=== PATIENT | female | born 1955 | race Caucasian/White ===

== ENCOUNTER 2017-06-12 12:00 | Observation (INO) | payer BC ==
[~2017-06-12] VITALS: Ht 172.7 cm; Wt 68.0 kg
--- NOTE | ~2017-06-12 | DS ---
PATIENT'S NAME: CARLITOS ROBERTSON [facility] AGE: 62 Y [address] ROOM: [place] [address] LOCATION: [facility] ADMIT DATE: 06/12/2017 Discharge Summary DISCHARGE DATE: 06/14/2017 FAMILY PHYSICIAN: Hussain Jarvis MD ATTENDING PHYSICIAN: Mango Ross PRIMARY DIAGNOSIS: Right tibia and fibular shaft fracture. SECONDARY DIAGNOSES: 1. Hyperlipidemia. 2. Gastroesophageal reflux disease. 3. Rheumatic fever as a child. 4. History of prolactinoma. PROCEDURE PERFORMED: Intramedullary rodding at right tibia. HISTORY: This is a 62-year-old female, presenting with a spiral fracture of the distal 1/3rd of her right tibia and an associated comminuted midshaft fibular fracture. Risks, benefits, limitations, and alternatives to intramedullary rodding were thoroughly reviewed with the patient and her . Please refer to her consultation notes as well as her admission history and physical. HOSPITAL COURSE: The patient underwent the above-specified procedure on 06/12/2017 without complications. Spinal anesthesia plus local anesthesia was utilized. She received 24 hours of perioperative prophylactic antibiotics. She remained hemodynamically stable and neurovascularly intact throughout her entire hospital course. Her postoperative deep venous thrombosis prophylaxis consisted of early mobilization and pneumatic compression devices. She received daily physical therapy for gait training and transfer training and progressed decently in physical therapy. On her date of discharge, 06/14/2017, the surgical incisions were healing well and showed no signs of infection. DISPOSITION: Home. DISCHARGE ACTIVITY: She is to be strict nonweightbearing of the right lower extremity. There is to be no dressing changes. She is to notify Dr. Ross immediately if she experiences increased pain, fevers, chills, erythema, or drainage. DISCHARGE MEDICATIONS: Percocet 5/325 mg 1 to 2 tablets p.o. every 4 hours p.r.n. for pain. She was then instructed to continue all her other preadmission medications as instructed by her Internal Medicine doctor. PATIENT'S NAME: CARLITOS ROBERTSON [facility] AGE: 62 Y [address] ROOM: [place] [address] LOCATION: [facility] ADMIT DATE: 06/12/2017 Discharge Summary DISCHARGE DATE: 06/14/2017 FAMILY PHYSICIAN: Hussain Jarvis MD ATTENDING PHYSICIAN: Mango Ross FOLLOWUP: Followup appointment is to be with Dr. Ross's office on 06/21/2017 for her initial postoperative evaluation. SHIMON GRADY PA-C FOR MANGO ROSS MD SMW/modl /[id number] d: 07/03/17 0139 t: 07/03/17 1006, DISCHARGE SUMMARY
--- NOTE | ~2017-06-12 | OR ---
PATIENT'S NAME: CARLITOS ROBERTSON [facility] AGE: 62 Y [address] ROOM: [place] [address] LOCATION: [facility] ADMIT DATE: 06/12/2017 OR/Procedure Report DISCHARGE DATE: FAMILY PHYSICIAN: Hussain Jarvis MD ATTENDING PHYSICIAN: MANGO ROSS SURGEON: Mango Ross MD MECHANICAL SERVICE SPECIALIST: None. DATE OF PROCEDURE: 06/12/2017 PREOPERATIVE DIAGNOSIS: Right tibia and fibula shaft fractures. POSTOPERATIVE DIAGNOSIS: Right tibia and fibula shaft fractures. PROCEDURE PERFORMED: Intramedullary rodding, right tibia. ANESTHESIA: Spinal anesthesia plus subcutaneous local anesthesia. DRAINS: None. SPECIMEN: None. COMPLICATIONS: None. ESTIMATED BLOOD LOSS: Approximately 100 mL. IMPLANTS: Synthes 11 mm x 345 mm titanium nail with 5 mm proximal end cap and 2 proximal and 2 distal interlocking screws. INDICATION FOR PROCEDURE: Ms. Robertson is a 62-year-old female presenting with a spiral fracture of the distal one-third of her right tibia and an associated comminuted midshaft fibular fracture. Risks, benefits, limitations, and alternatives to intramedullary rodding have been thoroughly reviewed with the patient and her . We have also discussed potential adverse sequelae of the injury itself. We have specifically reviewed risks and implications of infection, deep venous thrombosis, neurovascular complications, blood transfusion risks, malunion, nonunion, and potential need for further surgery. She has been told to anticipate some degree of postoperative numbness in the distribution of the infrapatellar branch of her saphenous nerve. Informed consent granted. DESCRIPTION OF PROCEDURE: The patient was positioned supine after administration of regional anesthesia. A well-padded pneumatic tourniquet was placed around the right proximal thigh, and the right lower extremity was placed into an arthroscopic leg jones. The left lower extremity was gently flexed at the hip, and the left foot was placed into a stirrup-type leg PATIENT'S NAME: CARLITOS ROBERTSON [facility] AGE: 62 Y [address] ROOM: [place] [address] LOCATION: [facility] ADMIT DATE: 06/12/2017 OR/Procedure Report DISCHARGE DATE: FAMILY PHYSICIAN: Hussain Jarvis MD ATTENDING PHYSICIAN: MANGO ROSS. The right lower extremity was prepped and draped with vigilant sterile technique. The pneumatic tourniquet was inflated for the approach to the tibia. A longitudinal midline incision was made over the patellar tendon. The patellar tendon was split centrally, longitudinally, and parallel with its fibers, and a Gelpi clamp was placed to spread the patellar tendon to expose the proximal tibial entry portal site. A guidewire was placed at the desired entry portal location, and the trajectory was confirmed to be optimal under AP and lateral fluoroscopic guidance. The entrance reamer was utilized using the appropriate soft tissue protection sleeve. A ball-tipped guidewire was subsequently placed across the fracture site and confirmed to be optimally positioned under AP and lateral fluoroscopic guidance. The tibia was subsequently reamed over the guidewire (again, using the appropriate soft tissue protector sleeve). The 10, 11, and 12 mm reamers engaged the endosteal cortex of the tibia. It should be noted that the tourniquet was released for reaming. The nail was placed over the guidewire to the appropriate depth. Anatomic reduction was confirmed under AP and lateral fluoroscopic guidance. The 2 proximal interlocking screws were placed. Upon positioning the leg to place the 2 distal interlocking screws, it became evident that the tibia had shifted into slight varus. Thus, I removed the nail (after attempting a closed reduction with the nail in place). Anatomic alignment could not be re- achieved due to the fact that the tibia had shortened and shifted into slight varus after placement of the nail. Thus, the nail was removed after removal of the proximal interlocking screws. Two separate 1 cm incisions were made at the medial and lateral margins of the fracture. Blunt dissection proceeded down to the medial and lateral cortices of the fracture taking care to avoid the neurovascular structures. The pointed-tip reduction clamp was utilized to maintain anatomic reduction of the tibia fracture as the nail was placed across the fracture. This clamp was left in place until after placement of the distal interlocking screws. The outrigger device was utilized to place the 2 proximal interlocking screws through two separate 1 cm longitudinal medial incisions. The radiolucent drill guide was utilized to place the 2 distal interlocking screws through 2 separate 1 cm incisions from medial to lateral. The reduction clamp was removed. AP and lateral imaging of the entire tibia demonstrated anatomic reduction of the tibia and fibula fractures. Optimal position of all hardware was confirmed as well. All incisions were thoroughly irrigated with sterile saline containing bacitracin. The tibial incision was closed with simple interrupted 0 Vicryl PATIENT'S NAME: CARLITOS ROBERTSON [facility] AGE: 62 Y [address] ROOM: [address] [address] LOCATION: [facility] ADMIT DATE: 06/12/2017 OR/Procedure Report DISCHARGE DATE: FAMILY PHYSICIAN: Hussain Jarvis MD ATTENDING PHYSICIAN: MANGO ROSS at the [facility]. Subcutaneous tissues were infiltrated with ropivacaine with epinephrine. Subcutaneous tissues were thoroughly irrigated with sterile saline containing bacitracin several times throughout the case. The tibial incision was closed with simple deep and superficial buried interrupted 2-0 Vicryl sutures, followed by a running subcuticular 3-0 Monocryl suture, followed by Dermabond, followed by Steri-Strips with benzoin. The two proximal interlocking screw sites were closed with simple deep interrupted 2-0 Vicryl, followed by superficial buried interrupted 3-0 Monocryl, followed by Dermabond, followed by Steri-Strips with benzoin. The two incisions at the fracture site as well as the two distal interlocking incisions were closed with superficial buried interrupted 3-0 Monocryl, followed by horizontal mattress interrupted 3-0 Ethilon sutures. Dressings consisted of Xeroform gauze, followed by occlusive Mepilex dressings. Tibial version was confirmed to be symmetric with the contralateral side. 2+ dorsalis pedis pulse was noted at the conclusion of the case. Calf compartments remained soft at the conclusion of the case. The tibia was overwrapped with sterile gauze dressings, followed by a 6 inch Adriel wrap. There were no complications The patient was transported to the Postanesthesia Care Unit in stable and comfortable condition. MD DAVID MEDEL/jagdish /[id number] d: 06/12/17 2159 t: 06/25/17 0752, OPERATIVE SUMMARY
--- NOTE | ~2017-06-12 | HP ---
PATIENT'S NAME: CARLITOS ROBERTSON [facility] AGE: 62 Y [address] ROOM: [place] [address] LOCATION: [facility] ADMIT DATE: 06/12/2017 History & Physical DISCHARGE DATE: FAMILY PHYSICIAN: Hussain Jarvis MD ATTENDING PHYSICIAN: MANGO ROSS DATE OF SERVICE: HISTORY OF PRESENT ILLNESS: Ms. Robertson is a 62-year-old female, who was transferred here from [facility] after having been diagnosed with fractures of the right tibia and fibula after she slipped and fell this morning. She fell down one stair. She fell backwards and is uncertain exactly what happened to the leg. She denies head trauma or loss of consciousness. She denies pain elsewhere as a result of the incident. She denies numbness or paresthesias at her right foot. She denies pain at the ipsilateral knee. She denies cervical spine pain. She denies pain in her other 3 extremities. She denies history of prior discomfort; dysfunction; or surgery on the right knee, leg, or ankle. ALLERGIES: SULFA. PRESENT MEDICATIONS: Pravastatin. ACTIVE MEDICAL PROBLEMS: Dyslipidemia. She denies active medical problems of any other sort. PAST SURGICAL HISTORY: Hysterectomy, laminectomy, rotator cuff repair. REVIEW OF SYSTEMS: No history of deep venous thrombosis. SOCIAL HISTORY: . Nonsmoker. Accompanied by her (who is an internal medicine physician). At baseline, she is healthy, active, and requires no assistive device for ambulation. Of note, the patient and her plan on traveling to [place] during July. They will be residing at [place]. PHYSICAL EXAMINATION: GENERAL: Alert, oriented, well-hydrated, well-nourished, pleasant, and cooperative female, who is in no distress. She states that she has required no analgesics since arriving here. EXTREMITIES: The right lower extremity is in a deflatable beanbag type PATIENT'S NAME: CARLITOS ROBERTSON [facility] AGE: 62 Y [address] ROOM: [place] [address] LOCATION: [facility] ADMIT DATE: 06/12/2017 History & Physical DISCHARGE DATE: FAMILY PHYSICIAN: Hussain Jarvis MD ATTENDING PHYSICIAN: MANGO ROSS splint. There is a 2 mm abrasion at the anteromedial tibia. This appears to be a very superficial abrasion and does not appear to be a puncture wound. The right foot is externally rotated relative to the right knee. There is no tenting of the skin. There is no effusion or tenderness at the right knee. 1+ dorsalis pedis pulse. Sensation to light touch is intact throughout the right foot. There is good capillary refill at the right toes. There is no edema at the right foot. She demonstrates no pain with active and passive range of motion of all joints in the left lower extremity and both upper extremities. She demonstrates painless, unrestricted active range of motion of her cervical spine. RADIOGRAPHS: I reviewed radiographs of the right leg from [place]. These demonstrate a mildly comminuted midshaft tibia fracture and a spiral fracture at the junction of the middle and distal one thirds of the tibia. The distal fragment is 100% laterally displaced and externally rotated relative to the proximal fragment. The ipsilateral knee is not thoroughly visualized on these films. The ipsilateral ankle appears normal. There is no hardware or lytic lesion in the right tibia or fibula. IMPRESSION: Right tibia and fibula fractures (significantly unstable). RECOMMENDATIONS: I have discussed operative and nonoperative options. I have discussed relative risks, benefits, and limitations of nonoperative treatment versus open reduction and internal fixation versus intramedullary rodding. I have recommended intramedullary rodding. I have discussed technical aspects of surgery as well as risks and limitations thereof. We have discussed potential adverse sequelae of the injury itself. We have specifically reviewed risks and implications of infection, deep venous thrombosis, pulmonary embolism, mortality, neurovascular complications, blood transfusion risks, malunion, nonunion, potential need for bone grafting and/or further surgery at a later date, and the anticipated need for restricted weightbearing for 2 months. I have told the patient to anticipate some degree of permanent numbness in the distribution of the infrapatellar branch of her saphenous nerve. She had her understand and accept all of the above and wished to proceed with surgery today. I have asked Dr. Chad Michael to evaluate the patient preoperatively and provide perioperative medical management. PATIENT'S NAME: CARLITOS RBOERTSON [facility] AGE: 62 Y [address] ROOM: [place] [address] LOCATION: [facility] ADMIT DATE: 06/12/2017 History & Physical DISCHARGE DATE: FAMILY PHYSICIAN: Hussain Jarvis MD ATTENDING PHYSICIAN: MANGO ROSS MD DAVID MEDEL/modl /[id number] D: [id number] T: [id number] HISTORY & PHYSICAL
--- NOTE | ~2017-06-12 | CON ---
PATIENT'S NAME: CARLITOS ROBERTSON [facility] AGE: 62 Y [address] ROOM: [address] [address] LOCATION: [facility] ADMIT DATE: 06/12/2017 Consultation DISCHARGE DATE: FAMILY PHYSICIAN: Hussain Jarvis MD ATTENDING PHYSICIAN: MANGO ROSS DATE OF CONSULTATION: 06/12/2017 REFERRING PHYSICIAN: Chad Michael MD CHIEF COMPLAINT: Right tibia fracture, status post ground level fall. HISTORY OF PRESENTING ILLNESS: This is a 62-year-old white female with history of hyperlipidemia, was transferred to [facility] after a fall with injury which occurred at her cabins at [facility] this morning. She states she had just descended stairs onto concrete which had been freshly sealed. Because the surface was wet, it was also slicked and she slipped awkwardly. She states she sort of fell forward with her leg in front of her. She experienced a crushing painful sensation as she fell. She was subsequently taken to a local hospital where x- rays demonstrated a fracture. Dr. Ross, Orthopedic Surgery, was consulted by telephone, and it was requested that she be transferred here for definitive evaluation and management. On her arrival, she is in a vacuum splint. She rates her pain at 3 to 4/10 and "tolerable." She denies headache pain. Denies dizziness or lightheadedness and denies any other injuries associated with the incident. She states she slipped and did not become syncopal before during or after the fall. She denies neck pain. No back pain. No chest pain, shortness of breath, or abdominal pain. She has been generally good health otherwise as of late. She eats and drinks normally. Denies any difficulties with chewing or swallowing. She stools and voids normally. Denies numbness or tingling in her extremities or any associated constitutional complaints. She is normally very active and exercises 30-40 minutes most days of the week. She can easily climb a flight of stairs and does heavy house work. ALLERGIES: SULFA CAUSES A RASH. ILLNESSES: 1. Hyperlipidemia. 2. Gastroesophageal reflux disease. 3. Rheumatic fever as a child. 4. History of prolactinoma. PATIENT'S NAME: CARLITOS ROBERTSON [facility] AGE: 62 Y [address] ROOM: [address] [address] LOCATION: [facility] ADMIT DATE: 06/12/2017 Consultation DISCHARGE DATE: FAMILY PHYSICIAN: Hussain Jarvis MD ATTENDING PHYSICIAN: MANGO ROSS 5. Cervical spinal stenosis, status post cervical laminectomy. SURGERIES: 1. Hysterectomy in 2006 with dermoid cyst. 2. x1. 3. D and C x1. CURRENT MEDICATIONS: 1. Pravastatin 40 mg p.o. daily. 2. Naproxen p.r.n. 3. Prevacid p.r.n. FAMILY HISTORY: Significant for lung cancer in her father. Mother had pancreatic cancer. SOCIAL HISTORY: She is and lives in [place]. She has a very distant past history of smoking, but less than 5-pack years. She drinks alcohol, 2-3 glasses of wine per week. REVIEW OF SYSTEMS: As per HPI. All other organ systems reviewed and are negative. OBJECTIVELY: VITAL SIGNS: Temperature 98.3, pulse 68, respirations 14, blood pressure 107/67, O2 saturation 96% on room air. GENERAL: She is very pleasant, cooperative, lying in bed, no acute distress. SKIN: Supple, pink, warm, dry. No obvious rashes. HEENT: Otherwise, normocephalic. Sclerae nonicteric. Pupils equal, round, and reactive to light and accommodation. Extraocular movements appear intact. Nasal turbinates normal in appearance. Oropharynx clear. Mucous membranes are pink and moist. NECK: Supple. No masses. No thyromegaly. No JVD. There is a well-healed scar over the right neck anteriorly. CHEST: Wall is symmetrical. HEART: Regular with no murmurs. Normal S1, S2. No S3 or S4. LUNGS: Clear bilaterally. No wheezes or crackles are heard. ABDOMEN: Soft, flat, nontender. Bowel sounds present. No masses or hepatosplenomegaly. AND RECTAL: Not done. EXTREMITIES: Display no significant clubbing, cyanosis, or edema. There is vacuum splint overlying the right lower extremity. The digits of the affected foot are neurovascularly intact. NEUROLOGICAL: No focal deficits. PATIENT'S NAME: CARLITOS ROBERTSON [facility] AGE: 62 Y [address] ROOM: [place] [id number] LOCATION: [facility] ADMIT DATE: 06/12/2017 Consultation DISCHARGE DATE: FAMILY PHYSICIAN: Hussain Jarvis MD ATTENDING PHYSICIAN: MNAGO ROSS LABORATORY AND X-RAY DATA: Chest x-ray shows no acute cardiopulmonary abnormalities. X-rays of the right lower extremity show a spiral type fracture of the distal tibia with a 3-4 part midshaft fracture of the fibula with mild angulation of 10-15 degrees of both fracture sites. There is very minimal proximal translocation of the distal fragment. ASSESSMENT/PLAN: 1. Right tibia and fibular fractures, status post ground level fall. Clinically, stable and adequate pain control. She is an appropriate candidate for operative repair and internal fixation under the direction of Dr. Ross. There are no absolute contraindications to proceed with surgery. We will await any postoperative recommendations. 2. Hyperlipidemia. Historically stable on pravastatin. Plan, clinical followup with the primary care provider. 3. Gastroesophageal reflux disease. Symptoms are relatively mild and only intermittent. She has historically been well controlled with PPI therapy on an as-needed basis. 4. Deep venous thrombosis prophylaxis. We will follow the venous thromboembolism protocol. MD DAYAN HUDSON/jagdish /[id number] d: 06/12/17 1441 t: 06/25/17 1618, CONSULTATION REPORT
[2017-06-12] MEDS ORDERED: PRAVACHOL40 MG PO (13:56)
--- NOTE | 2017-06-12 20:27 | NUR ---
WALKING DOWN THE STAIRS OUTSIDE AND STEPPED ON A ROCK ON THE WET CEMENT AND THE R) LEG SLIPPED OUT FROM UNDERNEATH HER AND SHE FELL ON HER "BOTTOM". PATIENT LOOKED DOWN AND SAW HER R) FOOT NEXT TO HER KNEE. PATIENT CALLED OUT FOR HELP AND HER GRANDSON GOT HER AND CALLED THE AMBULANCE AND TOOK HER TO THE [facility]. PATIENT CAME FROM [facility] TO [facility] BY PRIVATE CAR WITH HER . PATIENT DID NOT HIT HER HEAD OR LOOSE CONCIOUNESS.
--- NOTE | 2017-06-13 05:30 | NUR ---
Significant Event: Dressing had drainage. MD called and ordered to reinforce dressing. CSM WNL. Voids without difficulty. 1 assist with transfers. Percocet at 0430. Morphine at 0229. On room air. Follow up:
--- NOTE | 2017-06-13 17:27 | NUR ---
Pt has been up to recliner, BSC and this afternoon amb in [place] and to bathroom with NWB Rt leg. Has had leg elevated on 2 pillows, ice to ankle and below knee. Dressign changed this morning by Dr Turner and is dry and intact. Has incisions lower ankle and below knee. Foot has some edema. Toes warm, jay well. Can feel pedal pulse underneath swetha wrap. Has rated pain from 3-7. Morphine x1 at 0850 after dressing change and percocet po x3, last at 1530. Pt voids well, no nausea. Plans to go home tomorrow after PT instructs pt on crutches and steps. IS use at 2750
--- NOTE | 2017-06-14 04:36 | NUR ---
Significant Event:Dressing is clean, dry and intact. Voids without difficulty. 1 assist with transfers. Percocet at 0236. Morphine at 0237. Possible dismissal today. Follow up:
--- NOTE | 2017-06-14 10:00 | NUR ---
ATTEMPTED TO SPEAK TO PATIENT AT THE BEDSIDE BUT SHE IS SLEEPING AT THIS TIME. WILL TRY TO SEE PATIENT LATER.
--- NOTE | 2017-06-14 11:54 | NUR ---
SPOKE TO PATIENT REGARDING CM AND OUR ROLE. PATIENT LIVES IN OWN HOME WITH SPOUSE SHE IS PLANNING ON RETURNING HOME LATER TODAY. SHE HAS FRONT WHEELED WALKER SHE DOES NOT ANTICIPATE ANY DISCHARGE NEEDS. CM WILL CONT TO FOLLOW NEEDED.
[2017-06-14] MEDS ORDERED: ASPIR 8181 MG PO (14:44)
[2017-06-14] MEDS ORDERED: PERCOCET 5-3251 EACH PO (14:45)
[2017-06-14] MEDS ORDERED: MIRALAX17 GM PO (14:46)
[2017-06-14] MEDS ORDERED: COLACE100 MG PO (14:48)
[2017-06-14] MEDS ORDERED: MILK OF MA400 MG/5 M PO (14:56)
--- NOTE | 2017-06-14 16:29 | NUR ---
PT GIVEN DISCHARGE INSTRUCTIONS AND VOICES UNDERSTANDING. MEDICATIONS AND DRESSING INSTRUCTIONS REVIEWED WITH PT. PT GIVEN PAIN MEDS PRIOR TO DISCHARGE. ESCORTED TO THE FRONT DOOR BY TRANSPORT STAFF.
== END 2017-06-14 16:32 | disposition disaster alternative care site (69) ==
LOC: G3N 12:00 → EDSTATUS 12:00 → G3N 12:55
PROVIDERS: ADMIT Orthopaedic Surgery
PROC: 0QSJ06Z Reposition Right Fibula with Intramedullary Internal Fixation Device, Open Approach (ICD-10-PCS; principal; 2017-06-12)
PROC: 0QSG06Z Reposition Right Tibia with Intramedullary Internal Fixation Device, Open Approach (ICD-10-PCS; 2017-06-12)
DX: S82.201A Unspecified fracture of shaft of right tibia, initial encounter for closed fracture (principal); S82.451A Displaced comminuted fracture of shaft of right fibula, initial encounter for closed fracture; E78.5 Hyperlipidemia, unspecified; K21.9 Gastro-esophageal reflux disease without esophagitis; Z87.891 Personal history of nicotine dependence; Z90.710 Acquired absence of both cervix and uterus; Z98.890 Other specified postprocedural states; Z79.899 Other long term (current) drug therapy; Z88.2 Allergy status to sulfonamides; W10.9XXA Fall (on) (from) unspecified stairs and steps, initial encounter
CPT/HCPCS: C1713; J0690; J1885; J2175; J2270; J2405; J2795; J3010; J7030; J7121